=== PATIENT | female | born 1980 | race African-American/Black ===

== ENCOUNTER 2022-09-15 09:56 | Outpatient (CLI) | payer OTHER, MEDICAID, SELFPAY ==
--- NOTE | ~2022-09-15 | US_ITS ---
EXAMINATION: US breast cyst asp LT DATE: 09/15/2022 11:15 CDT INDICATION: Left breast cyst aspiration TECHNIQUE: Survey imaging of the left breast was performed. The cyst(s) at the 11:00 position was ta rgeted for aspiration. The procedure and its risk and benefits were discussed with the patient. Risk s included but were not limited to pain, bleeding and infection. The patient verbalized understandin g and provided written consent. A time-out was performed to document the patient's name, date of , and site of procedure. The u pper inner quadrant of the patient's left breast was prepped and draped in usual sterile fashion. 1% lidocaine was used for local anesthesia. Utilizing ultrasound guidance, a 18-gauge needle was advan vickie into the lesion in the left breast. Aspiration was performed. 2 cc of fluid obtained without com plication The patient tolerated procedure without immediate complication. Sterile bandages were applied over t he aspiration site(s).] FINDINGS: Successful ultrasound-guided aspiration of left breast cyst. Complete resolution of the cys t following aspiration. IMPRESSION: 1. Successful ultrasound-guided fine-needle aspiration of left breast cyst. 2 cc of fluid obtained w ithout complication. Reviewed, dictated and finalized at location A. IMPRESSION: 1. Successful ultrasound-guided fine-needle aspiration of left breast cyst. 2 cc of fluid obtained without complication.
== END 2022-09-15 09:57 | disposition home or self-care (01) ==
LOC: ANHIMG 10:02
PROVIDERS: PCP Physician Assistant; Visit Provider Surgery
DX: N60.02 Solitary cyst of left breast (principal)
CPT/HCPCS: 19000